=== PATIENT | female | born 1980 | race Hispanic/Latino ===

== ENCOUNTER 2016-08-13 03:38 | Emergency (ER) | payer BC, OTHER ==
[2016-08-13 04:06] VITALS: RESP 17; O2SAT 99
[2016-08-13] MEDS ORDERED: Sodium Chloride 0.9% 1,000 ML IV STA (04:18)
--- NOTE | 2016-08-13 04:21 | ED PDOC ---
HPI: Female Pain Time Seen by Provider: 08/13/16 04:06 Chief Complaint (Nursing): Female Genitourinary Chief Complaint (Provider): pelvic pain History Per: Patient History/Exam Limitations: no limitations Onset/Duration Of Symptoms: Days (2) Current Symptoms Are (Timing): Still Present Severity: Moderate Pain Scale Rating Of: 9 Quality Of Discomfort: "Pain" Additional History Per: Patient Additional Complaint(s): 36 y/o female history of PCOS, endometriosis presents with "intense" left-sided pelvic pain x 2 days. Patient notes pink vaginal spotting x 5 hours. No relief with Aleve. Denies fever, nausea/vomiting, changes in bowel movements, dysuria, hematuria. Abnormal Vaginal Bleeding: Yes Last Menstral Period: 07/22/16 Past Medical History Reviewed: Historical Data, Nursing Documentation, Vital Signs Vital Signs: Last Vital Signs Temp 98.3 F 08/13/16 04:02 Pulse 120 H 08/13/16 04:02 Resp 17 08/13/16 04:02 BP 133/88 08/13/16 04:02 Pulse Ox 99 08/13/16 04:02 - Medical History PMH: Anxiety, Depression - Surgical History Other surgeries: right oophrectomy, laparascopic - Family History Family History: States: Unknown Family Hx - Allergies Allergies/Adverse Reactions: Allergies Allergy/AdvReac Type Severity Reaction Status Date / Time propranolol Allergy RASH Verified 08/13/16 04:08 Review of Systems ROS Statement: Except As Marked, All Systems Reviewed And Found Negative Genitourinary Female: Positive for: Vaginal Bleeding, Pelvic Pain Physical Exam - Reviewed Nursing Documentation Reviewed: Yes Vital Signs Reviewed: Yes - Physical Exam Appears: Positive for: Well, Non-toxic, Uncomfortable Head Exam: Positive for: ATRAUMATIC, NORMAL INSPECTION, NORMOCEPHALIC Skin: Positive for: Normal Color Eye Exam: Positive for: Normal appearance ENT: Positive for: Normal ENT Inspection Cardiovascular/Chest: Positive for: Regular Rate, Rhythm Respiratory: Positive for: Normal Breath Sounds Gastrointestinal/Abdominal: Positive for: Bowel Sounds, Soft, Tenderness (left pelvic) Pelvic Exam: Positive for: External Exam Normal, No Cerv. Motion Tender, Tender Adnexa, Other (chaperoned by ground control approach technician Maday). Negative for: Active Bleeding Back: Positive for: Normal Inspection Extremity: Positive for: Normal ROM Neurologic/Psych: Positive for: Alert, Oriented - Laboratory Results Result Diagrams: 08/13/16 04:49 08/13/16 04:49 - ECG O2 Sat by Pulse Oximetry: 99 - Progress ED Course And Treament: labs, urine, TV u/s, IV toradol Disposition - Clinical Impression Clinical Impression: Pelvic pain - Disposition Disposition: Transfer of Care Disposition Time: 05:50 Condition: STABLE Patient Signed Over To: Gudelia Barnard Handoff Comments: pending u/s, urine, re-eval
[2016-08-13 04:56] LABS: BASO % 0.6 % (0.0-2.0); EOS # 0.2 K/uL (0.0-0.7); EOS % 2.2 % (0.0-4.0); HEMATOCRIT 38.6 % (34.0-47.0); LYMPH # 2.9 K/uL (1.0-4.3); LYMPH % 41.4 % (20.0-40.0); MEAN CELL VOLUME 92.6 fl (81.0-99.0); MEAN CORPUSCULAR HEMOGLOBIN 31.2 pg (27.0-31.0); MEAN CORPUSCULAR HGB CONC 33.7 g/dL (33.0-37.0); MEAN PLATELET VOLUME 8.4 fl (7.2-11.7); MONO # 0.5 K/uL (0.0-0.8); MONO % 7.4 % (0.0-10.0); NEUT # 3.4 K/uL (1.8-7.0); NEUT % 48.4 % (50.0-75.0); RED CELL DISTRIBUTION WIDTH 12.7 % (11.5-14.5)
[2016-08-13 05:02] LABS: ALB/GLOB RATIO 1.4 (1.0-2.1); ALKALINE PHOSPHATASE 76 U/L (38-126); ALT/SGPT 27 U/L (9-52); AST/SGOT 26 U/L (14-36); BILIRUBIN,TOTAL 0.4 mg/dl (0.2-1.3); BLOOD UREA NITROGEN 9 mg/dl (7-17); CALCIUM 9.3 mg/dL (8.4-10.2); CARBON DIOXIDE 25 mmol/L (22-30); CHLORIDE 104 mmol/L (98-107); GFR AFRICAN-AMERICAN > 60; GLUCOSE,RANDOM 83 mg/dL (65-105); POTASSIUM 3.7 MMOL/L (3.6-5.0); SODIUM 144 mmol/l (132-148); TOTAL PROTEIN 7.4 G/DL (6.3-8.2)
--- NOTE | 2016-08-13 05:57 | ED PDOC ---
- Laboratory Results Result Diagrams: 08/13/16 04:49 08/13/16 04:49 - ECG O2 Sat by Pulse Oximetry: 99 Medical Decision Making Medical Decision Making: Patient s/o from Monika Wells PA-C at 0600 pending urine and US. 0605: US Pelvis impression: 1. No acute findings. Scribe Attestation: Documented by Susanna Harrison acting as a scribe for Gudelia Barnard MD. Provider Scribe Attestation: All medical record entries made by the Scribe were at my direction and personally dictated by me. I have reviewed the chart and agree that the record accurately reflects my personal performance of the history, physical exam, medical decision making, and the department course for this patient. I have also personally directed, reviewed, and agree with the discharge instructions and disposition. Disposition Doctor Will See Patient In The: Office Counseled Patient/Family Regarding: Studies Performed, Diagnosis, Need For Followup - Clinical Impression Clinical Impression: Pelvic pain, Endometriosis - POA Present On Arrival: None - Disposition Referrals: [facility] [Outside] Disposition: Routine/Home Disposition Time: 06:31 Condition: GOOD Additional Instructions: Follow up with your [employer] in 3 days. Prescriptions: oxyCODONE/Acetaminophen [Percocet 5/325 mg Tab] 1 tab PO Q6 PRN #10 tab PRN Reason: Pain, Severe (8-10) Instructions: Pelvic Pain in Women (ED)
[2016-08-13] MEDS ORDERED: Oxycodone/Acetaminophen 5/325 mg Tab PO ONE (06:30)
[2016-08-13] MEDS ORDERED: Oxycodone/Acetaminophen 5/325 mg Tab ONE (06:33)
[2016-08-13 06:50] VITALS: BP 115/63; PULSE 71; TEMP 97.9
--- NOTE | 2016-08-13 09:26 | US ---
HISTORY: left pelvic pain COMPARISON: None available. TECHNIQUE: Transvaginal pelvic ultrasound was performed. FINDINGS: UTERUS: Measures 8.0 x 3.5 x 5.2 cm. Anteverted, normal in size and appearance. There is heterogeneous myometrial echotexture without fibroid or other mass lesion seen. ENDOMETRIUM: Measures 8 mm in diameter. Unremarkable. CERVIX: No cervical abnormality identified. RIGHT OVARY: Surgically absent. LEFT OVARY: Measures 3.3 x 2.7 x 3.0 cm. No solid mass. Normal flow. FREE FLUID: No significant free fluid noted. OTHER FINDINGS: None. IMPRESSION: No evidence of fibroid uterus. No evidence of left ovarian cyst or adnexal mass. A preliminary report was provided by [employer] [facility].
[2016-08-13 09:54] LABS: RBC URINE 2 /hpf (0-3); URINE BACTERIA OCC (<OCC); URINE BILIRUBIN NEGATIVE (NEGATIVE); URINE BLOOD SMALL (NEGATIVE); URINE COLOR YELLOW (YELLOW); URINE GLUCOSE (UA) NEG (Normal); URINE KETONE NEGATIVE (NEGATIVE); URINE LEUKOCYTE ESTERASE NEG Leu/uL (Negative); URINE PROTEIN NEGATIVE (NEGATIVE); URINE UROBILINOGEN 0.2-1.0 mg/dL (0.2-1.0); WBC URINE 1 /hpf (0-5)
== END 2016-08-13 06:50 | disposition home or self-care (01) ==
LOC: H.ER 03:38
DX: N80.9 Endometriosis, unspecified (principal); Z86.59 Personal history of other mental and behavioral disorders
CPT/HCPCS: 76830; 80053; 81003; 81025; 85025; 87086; 96361; 96374; 99283; J1885; J7040

== ENCOUNTER 2017-05-10 17:24 | Emergency (ER) | payer BC ==
[2017-05-10 17:38] VITALS: BP 138/89; PULSE 119; RESP 22; TEMP 98.4; O2SAT 99
--- NOTE | 2017-05-10 17:58 | ED PDOC ---
Lower Extremity Pain/Injury Time Seen by Provider: 05/10/17 17:57 Chief Complaint (Nursing): Lower Extremity Problem/Injury Chief Complaint (Provider): right leg numbness/weakness History Per: Patient (36 y/o female h/o lumbar discectomy 3 year ago here with right leg numbness x 1 weeks with associated mild weakness. Denies any urinary or rectal incontinence. Has tried motrin without improvement of symptoms.) Past Medical History Reviewed: Historical Data, Nursing Documentation, Vital Signs Vital Signs: Last Vital Signs Temp 98.4 F 05/10/17 17:35 Pulse 119 H 05/10/17 17:35 Resp 22 05/10/17 17:35 BP 138/89 05/10/17 17:35 Pulse Ox 99 05/10/17 17:35 - Medical History PMH: Anxiety, Depression - Family History Family History: States: Unknown Family Hx - Home Medications Home Medications: Ambulatory Orders Medication Instructions Recorded Gabapentin [Neurontin] 400 mg PO TID 05/10/17 Methylprednisolone [Medrol Dose 4 mg PO DAILY #21 mg 05/10/17 Pack (21 tabs)] diaZEpam [Valium] 5 mg PO Q6 PRN #5 tab 05/10/17 - Allergies Allergies/Adverse Reactions: Allergies Allergy/AdvReac Type Severity Reaction Status Date / Time sesame oil Allergy RASH Verified 05/10/17 17:41 Review of Systems ROS Statement: Except As Marked, All Systems Reviewed And Found Negative Neurological: Positive for: Numbness Physical Exam - Reviewed Nursing Documentation Reviewed: Yes Vital Signs Reviewed: Yes - Physical Exam Appears: Positive for: Well, Non-toxic, No Acute Distress Head Exam: Positive for: ATRAUMATIC, NORMAL INSPECTION, NORMOCEPHALIC Skin: Positive for: Normal Color, Warm, DRY Eye Exam: Positive for: EOMI, Normal appearance, PERRL ENT: Positive for: Normal ENT Inspection Neck: Positive for: Normal, Painless ROM Cardiovascular/Chest: Positive for: Regular Rate, Rhythm Respiratory: Positive for: CNT, Normal Breath Sounds Gastrointestinal/Abdominal: Positive for: Normal Exam, Bowel Sounds, Soft Back: Positive for: Normal Inspection Extremity: Positive for: Normal ROM, Other (decreased sensation noted right foot /leg compared to left. 5/5 dorsoflexion/planar flexion/leg extension biilaterally.) Neurologic/Psych: Positive for: Alert, Oriented - ECG O2 Sat by Pulse Oximetry: 99 - Progress ED Course And Treament: toradol 30 mg Im x 1 dose d/w patient importance of f/u with pmd for MRI. Disposition - Clinical Impression Clinical Impression: Sciatica - Patient ED Disposition Is Patient to be Admitted: No - Disposition Disposition: Routine/Home Disposition Time: 18:24 Condition: FAIR Prescriptions: diaZEpam [Valium] 5 mg PO Q6 PRN #5 tab PRN Reason: Muscle Spasm Methylprednisolone [Medrol Dose Pack (21 tabs)] 4 mg PO DAILY #21 mg Instructions: Sciatica (ED) Forms: [employer] (Lithuanian)
== END 2017-05-10 18:35 | disposition home or self-care (01) ==
LOC: H.ER 17:24
DX: M54.30 Sciatica, unspecified side (principal); F32.9 Major depressive disorder, single episode, unspecified; F41.9 Anxiety disorder, unspecified
CPT/HCPCS: 81025; 96372; 99284; J1885